=== PATIENT | female | born 1990 | race Caucasian/White ===

== ENCOUNTER 2021-03-09 10:28 | Inpatient (IN) | payer MEDICAID, SELFPAY ==
[2021-03-09 11:05] VITALS: BP 117/81; PULSE 70; RESP 20; TEMP 36.7; O2SAT 100; BMI 30.9
--- NOTE | 2021-03-09 11:05 | XRR_ITS ---
PROCEDURE INFORMATION: Exam: XR Chest Exam date and time: 03/09/2021 11:05 AM Age: 31 years old Clinical indication: Angina pectoris and other: Lrq pain; Prior surgery; Surgery type: Hysto, hernia, , abd reconstruction; Additional info: Chest pain TECHNIQUE: Imaging protocol: XR of the chest. Views: 2 views. COMPARISON: No relevant prior studies available. FINDINGS: Lungs: Unremarkable. No consolidation. Pleural spaces: Unremarkable. No pleural effusion. No pneumothorax. Heart/Mediastinum: Unremarkable. No cardiomegaly. Bones/joints: Unremarkable. XR/XR chest 2V* [id number] IMPRESSION: No acute findings. Radiation Dose CTDIVOL = (mGy): DLP = (mGy-cm)
--- NOTE | 2021-03-09 11:06 | ECG_ITS ---
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
[2021-03-09 13:07] VITALS: BP 123/82; PULSE 88; RESP 18; O2SAT 100
[2021-03-09 13:51] LABS: Add Urine Microscopic? NO; Charge for UA Resulting for Rev
[2021-03-09 13:56] LABS: Urine Color Dark Yellow (Yellow)
[2021-03-09 13:57] LABS: Bilirubin Urine 1+ (Negative); Blood Urine Neg (Negative); Glucose Urine UA Norm (Normal); Ketones Urine Negative (Negative); Leukocyte Esterase Urine Negative (Negative); Nitrate Urine Negative (Negative); Protein Urine Neg (Negative); Urine Appearance Clear (CLEAR); Urobilinogen Urine 1 mg/dL (Negative); pH Urine 5 (5-7)
--- NOTE | 2021-03-09 15:11 | W.ED.ABDPA2 ---
HPI - Abdominal Pain General: Chief Complaint: Abdominal Pain Stated Complaint: RUQ PAIN,MIGRAINE,PULSE ^125,R SIDE CP/NECK PAIN Time Seen by Provider: 03/09/21 15:11 History of Present Illness: HPI narrative: 31-year-old female comes in multiple complaints. She reported having some tachycardia and lightheadedness and dizziness yesterday that is pretty much resolved she does have some right upper quadrant pain but this evidently has been going on for years is little bit worse just recently. Does radiate up into her shoulder at times into her neck. Multiple previous evaluations for gallbladder disease all of which have been negative including a HIDA scan. This was done at an outside facility she recently moved to this area. She has no known history of diabetes no history of coronary artery disease. She did have a little bit of nausea and diarrhea last night. She is also reporting significant fluctuations in weight over the last year with a large weight last year when she moved here and now more recent weight loss. MD elicited complaint: abdominal pain Onset (ago): hour(s) Location: None Severity: moderate Quality: cramping Radiation: none Migration to: no migration Exacerbating factors: nothing Relieving factors: nothing Associated Symptoms: Denies anorexia, belching, bloating, change in bowel habits, change in stool character, chills, coffee ground emesis, constipation, GI cramping, diarrhea, dyspepsia, dysuria, excessive flatus, fever(s), heartburn, hematochezia, hematuria, hematemesis, fecal incontinence, loose stools, melena, nausea, poor appetite, syncope and vomiting Related Data: Date of Last Menstrual Period: 05/22/13 Review of Systems Const: Denies: fever(s) or chills ENMT: Denies: throat pain, ear or mastoid pain, nasal discharge or nasal congestion Card: Denies: syncope Resp: Denies: dyspnea, productive cough or non-productive cough GI: Denies: nausea, vomiting, hematemesis, coffee ground emesis, heartburn, diarrhea, constipation, bloating, GI cramping, belching, excessive flatus, fecal incontinence, change in bowel habits, change in stool character, hematochezia or melena : Denies: dysuria or hematuria Skin/Breast: Denies: rash or pruritus PFSH ED PFSH: Medical History Endometriosis Migraine Nephrolithiasis Von Willebrands disease Surgical History H/O bilateral oophorectomy For endometriosis H/O: hysterectomy 2013, for endometriosis Female Reproductive History: Date of last menstrual period: 05/22/13 Physical Exam Const: COMMON NORMALS: average body habitus, patient oriented x3 and alert GENERAL APPEARANCE: cooperative, comfortable, well kempt and well developed NUTRITIONAL APPEARANCE: obese ORIENTATION/CONSCIOUSNESS: Yes awake, Yes oriented to person and Yes oriented to place HENMT: COMMON NORMALS: normocephalic, atraumatic and EAC's normal HEAD & SCALP: normocephalic and atraumatic EXTERNAL AUDITORY CANAL: EAC's normal Neck/C-Spine: COMMON NORMALS: full ROM, no lymphadenopathy, supple, no meningeal signs and Thyroid normal THYROID: Thyroid normal and asymmetrical Resp: COMMON NORMALS: normal respiratory effort, No retractions, No use of accessory muscles and clear to auscultation bilaterally AUSCULTATION: clear to auscultation bilaterally Cardio: COMMON NORMALS: regular rate and regular rhythm RATE: regular rate RHYTHM: regular rhythm HEART SOUNDS: no murmurs GI: COMMON NORMALS: Normal to inspection, nondistended, normoactive bowel sounds present, Soft to palpation and No hepatosplenomegaly present PALPATION: Yes Soft to palpation and Yes No hepatosplenomegaly present : COMMON NORMALS: Yes no CVA tenderness BLADDER/KIDNEY EXAM: Yes no CVA tenderness Back/Pelvis: COMMON NORMALS: no CVA tenderness LUMBAR SPINE/LOWER BACK: Yes normal to inspection Extremity: COMMON NORMALS: no clubbing, cyanosis or edema, no calf tenderness and no pedal edema Neuro: COMMON NORMALS: patient oriented x3 SENSORIUM/ORIENTATION: Yes alert, Yes oriented to person and Yes oriented to place MENINGEAL SIGNS: Yes no meningeal signs Psych: APPEARANCE: Yes well kempt Skin: COMMON NORMALS: no rashes or lesions noted and turgor normal GENERAL SKIN EXAM: no rashes or lesions noted and turgor normal Course Vital Signs: Vital signs: Vital Signs Temperature 97.7 F 03/10/21 14:10 Pulse Rate 68 03/10/21 14:20 Respiratory Rate 16 03/10/21 14:20 Blood Pressure 100/62 03/10/21 14:20 Pulse Oximetry 100 03/10/21 14:20 MDM - Abdominal Pain MDM Narrative: Medical decision making narrative: See report states possible early appendicitis. No back to reexamine the patient she does have a little bit more right lower quadrant pain that she did not report initially initially was all right upper quadrant pain. Discussed Dr. Treadwell, pt will be put on observation and monitor her he will see her. We will also consult the hospitalist due to her report of a mild von Willebrand's disease. Lab Data: Labs: Lab Results 03/09/21 03/09/21 03/09/21 13:47 13:47 15:38 WBC 4.2 10^3/uL 10^3/ uL (4.0-10.0) RBC 4.69 10^6/uL 10^6 /uL (4.1-5.3) Hgb 13.2 g/dL g/dL (11.5-15.3) Hct 39.8 % % (37.0-47.0) MCV 84.9 fl fl (81-99) MCH 28.1 pg pg (28.0-34.0) MCHC 33.2 g/dL g/dL (30.0-36.0) RDW 13.5 % % (12.1-15.1) Plt Count 231 10^3/cmm 10^3 /cmm (130-400) MPV 9.1 fL fL (7.4-10.4) Neut % (Auto) 59.0 % % Lymph % (Auto) 30.0 % % [place] % (Auto) 7.9 % % Eos % (Auto) 2.1 % % Baso % (Auto) 0.5 % % Neut # (Auto) 2.48 10^3/uL 10^3 /uL (1.8-7.7) Lymph # (Auto) 1.3 10^3/uL 10^3/ uL (0.8-4.8) [place] # (Auto) 0.3 10^3/uL 10^3/ uL (0.2-0.9) Eos # (Auto) 0.1 10^3/uL 10^3/ uL (0.0-0.8) Baso # (Auto) 0.0 10^3/uL 10^3/ uL (0.0-0.1) Nucleated RBC % (a uto) 0 % % Nucleated RBCs # 0.0 /100WBC /100W BC PT INR APTT Sodium Potassium Chloride Carbon Dioxide Anion Gap BUN Creatinine GFR Calculation Glucose Calculated Osmolal ity Calcium Total Bilirubin AST ALT Alkaline Phosphata se Troponin T Gen 5 n g/L Total Protein Albumin Globulin Lipase Urine Color Dark yellow (Yellow) Urine Appearance Clear (CLEAR) Urine pH 5 (5-7) Ur Specific Gravit y 1.020 (1.005-1.030) Urine Protein Neg (Negative) Urine Glucose (UA) Norm (Normal) Urine Ketones Negative (Negative) Urine Blood Neg (Negative) Urine Nitrate Negative (Negative) Urine Bilirubin 1+ H (Negative) Urine Urobilinogen 1 mg/dL H mg/dL (Negative) Ur Leukocyte Lila ase Negative (Negative) Urine HCG, Qual Negative (Negative) 03/09/21 03/09/21 03/09/21 15:38 15:38 15:38 WBC RBC Hgb Hct MCV MCH MCHC RDW Plt Count MPV Neut % (Auto) Lymph % (Auto) [place] % (Auto) Eos % (Auto) Baso % (Auto) Neut # (Auto) Lymph # (Auto) [place] # (Auto) Eos # (Auto) Baso # (Auto) Nucleated RBC % (a uto) Nucleated RBCs # PT 14.00 SECONDS SEC ONDS (12.1-14.9) INR 1.05 (0.8-1.2) APTT 38.6 SECONDS H SE CONDS (23.9-36.7) Sodium 139 mmol/L mmol/L (136-145) Potassium 3.6 mmol/L mmol/L (3.5-5.1) Chloride 101 mmol/L mmol/L (98-107) Carbon Dioxide 27 mmol/L mmol/L (22-29) Anion Gap 14.6 (5-19) BUN 6 mg/dL mg/dL (6-20) Creatinine 0.6 mg/dL mg/dL (0.5-0.9) GFR Calculation 116.6 mL/min mL/m in (90-130) Glucose 82 mg/dL mg/dL (65-115) Calculated Osmolal ity 285 mOsm/kg mOsm/ kg (285-295) Calcium 9.5 mg/dL mg/dL (8.5-10.5) Total Bilirubin 1.0 mg/dL mg/dL (0.15-1.2) AST 15 U/L U/L (0-32) ALT 10 U/L U/L (0-33) Alkaline Phosphata se 99 IU/L IU/L (35-105) Troponin T Gen 5 n g/L 6 ng/L ng/L (0-10) Total Protein 7.5 g/dL g/dL (6.6-8.7) Albumin 4.3 g/dL g/dL (3.5-5.2) Globulin 3.2 g/dL g/dL (1.3-4.6) Lipase 19 U/L U/L (13-60) Urine Color Urine Appearance Urine pH Ur Specific Gravit y Urine Protein Urine Glucose (UA) Urine Ketones Urine Blood Urine Nitrate Urine Bilirubin Urine Urobilinogen Ur Leukocyte Lila ase Urine HCG, Qual Discharge Plan Discharge Patient Disposition: Admitted As Inpatient Admit Provider: Lew Treadwell Clinical Impression: Acute appendicitis, Von Willebrands disease Condition: Stable Coding 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
[2021-03-09 15:59] LABS: Basophils % 0.5 %; Eosinophils # 0.1 10^3/uL (0.0-0.8); Eosinophils % 2.1 %; Hematocrit 39.8 % (37.0-47.0); Hemoglobin 13.2 g/dL (11.5-15.3); Lymphocytes # 1.3 10^3/uL (0.8-4.8); Mean Corpuscular HGB Conc 33.2 g/dL (30.0-36.0); Mean Corpuscular Hemoglobin 28.1 pg (28.0-34.0); Mean Corpuscular Volume 84.9 fl (81-99); Mean Platelet Volume 9.1 fL (7.4-10.4); Monocytes # 0.3 10^3/uL (0.2-0.9); Monocytes % 7.9 %; Neutrophils # 2.48 10^3/uL (1.8-7.7); Nucleated Red Blood Cells % 0 %; Platelet Count 231 10^3/cmm (130-400); Red Blood Count 4.69 10^6/uL (4.1-5.3); Red Cell Distribution Width 13.5 % (12.1-15.1); White Blood Count 4.2 10^3/uL (4.0-10.0)
--- NOTE | 2021-03-09 16:06 | CTR_ITS ---
PROCEDURE INFORMATION: Exam: CT Abdomen And Pelvis With Contrast Exam date and time: 03/09/2021 4:06 PM Age: 31 years old Clinical indication: Abdominal pain; Localized; Right; Prior surgery; Surgery type: Hyst, hernia, abd wall recon, breast reduction, csection; Patient HX: RT side pain radiating to back x 2 months. Nausea/diarrhea; Additional info: Abd pain TECHNIQUE: Imaging protocol: Computed tomography of the abdomen and pelvis with contrast. Radiation optimization: All CT scans at this facility use at least one of these dose optimization techniques: automated exposure control; mA and/or kV adjustment per patient size (includes targeted exams where dose is matched to clinical indication); or iterative reconstruction. Contrast material: OMNI 300; Contrast volume: 95 ml; Contrast route: INTRAVENOUS (IV); COMPARISON: CR XR chest 2V* [id number] 03/09/2021 11:21 AM RADIATION DOSE METRICS: Total DLP (mGy-cm): 1449.67 FINDINGS: Liver: Normal. No mass. Gallbladder and bile ducts: Normal. No calcified stones. No ductal dilation. Pancreas: Normal. No ductal dilation. Spleen: Normal. No splenomegaly. Adrenal glands: Normal. No mass. Kidneys and ureters: A tiny renal stone is present in the right kidney. The kidneys appear normal. No ureteral stone or hydronephrosis. Stomach and bowel: Unremarkable. No obstruction. No mucosal thickening. Appendix: The appendix is mildly enlarged measuring up to 10 mm in diameter. Intraperitoneal space: Unremarkable. No free air. No significant fluid collection. Vasculature: Unremarkable. No abdominal aortic aneurysm. Lymph nodes: Unremarkable. No enlarged lymph nodes. Urinary bladder: Mild urinary bladder wall thickening is appreciated. Reproductive: The uterus is absent. Bones/joints: Unremarkable. No acute fracture. Soft tissues: Unremarkable. CT/CT abdomen pelvis w con* [id number] IMPRESSION: 1. Possible early acute appendicitis, correlate clinically. 2. Mild cystitis, correlate with urinalysis. 3. Nonobstructing right kidney renal stone. Radiation Dose CTDIVOL = (mGy): DLP = 1449.67 (mGy-cm)
[2021-03-09 16:24] LABS: Alanine Aminotransferase 10 U/L (0-33); Albumin Level 4.3 g/dL (3.5-5.2); Alkaline Phosphatase 99 IU/L (35-105); Anion Gap 14.6 (5-19); Aspartate Amino Transferase 15 U/L (0-32); Blood Urea Nitrogen 6 mg/dL (6-20); Calcium 9.5 mg/dL (8.5-10.5); Carbon Dioxide 27 mmol/L (22-29); Chloride 101 mmol/L (98-107); Globulin 3.2 g/dL (1.3-4.6); Glomerular Filtration Rate 116.6 mL/min (90-130); Glucose 82 mg/dL (65-115); Lipase 19 U/L (13-60); Osmolality Calculated 285 mOsm/kg (285-295); Potassium 3.6 mmol/L (3.5-5.1); Sodium 139 mmol/L (136-145); Total Protein 7.5 g/dL (6.6-8.7)
[2021-03-09 16:25] LABS: Troponin T (5th) Once 6 ng/L (0-10)
[2021-03-09] MEDS: iohexol 300 mg/mL 100 mL Btl IV (16:27)
[2021-03-09] MEDS: sodium chloride 0.9% 1,000 ML 999 ML IV (17:38)
[2021-03-09] MEDS: ondansetron 2 mg/ML SDV 2 mL 4 MG IVP ×2 (17:38→21:33)
[2021-03-09] MEDS: metroNIDAZOLE IV 500 MG/100 ML PREMIX 100 MG IV (18:07)
[2021-03-09 18:10] LABS: INR 1.05 (0.8-1.2)
[2021-03-09 18:11] LABS: Partial Thromboplastin Time 38.6 SECONDS (23.9-36.7)
--- NOTE | 2021-03-09 19:17 | PM.CONSULT ---
Providers/Reason For Consult Consulting Physician/Specialty*: MD Ryan/Internal Medicine Reason for Consult*: Medical co-morbidities Attending Physician: Lew Treadwell MD History of Present Illness History of Present Illness Sloane Meyers is a 31 year old female, recently moved to [place] about 2 months ago, with a past medical history of von Willebrand disease, migraine, endometriosis with excessive menstrual bleeding, status post hysterectomy and bilateral oophorectomy for the same. She reports that over the past 1 month she has been having right-sided abdominal pain, initially concentrated around her right upper quadrant and back, however over the past 24 to 48 hours this pain appears to have moved lower down, now closer to the mid flank to right lower quadrant area. She does have a history of kidney stones and initially attributed the pain to stones. She has not passed any stones in urine. Denies any hematuria. Denies any current increased frequency burning micturition etc. States that she has also been experiencing chills and subjective fever last night along with loss of appetite. She had one episode of diarrhea yesterday. Yesterday apart from the abdominal pain she also experienced her typical migraine headache with tunnel vision, nausea and palpitations with heart rate up to 120 bpm. This prompted her visit to the emergency room. CT of the abdomen today is concerning for mild acute appendicitis, nephrolithiasis without obstruction. She is currently admitted under general surgery, medicine service consulted for medical comorbidity management. Her significant past medical history includes that for von Willebrand disease, states that she has not had any significant bleeding complications with her prior abdominal surgeries, however did receive DDAVP 30 minutes prior to each surgery previously. She has not needed any blood transfusion except for the time she delivered her twin children 9 years ago. No current h/o easy bruising or bleeding at any site. Recently moved to the [place] area, prior medical care has been in [place] and [place], not established with hematology here yet. Review of Systems General: Reports: 10 or more systems reviewed and unremarkable except in HPI and below Const: Reports: fever(s), chills, change in appetite and change in weight; Denies: body aches, malaise, night sweats, diaphoresis, change in sleep pattern, daytime sleepiness or snoring Eyes: Denies: change in vision, blurry vision, photophobia, eye discomfort or eye discharge ENMT: Denies: throat pain, enlarged tonsils, hoarseness, mouth pain, oral sores, dry mouth, tinnitus, nasal congestion or post nasal drip Card: Denies: chest pain, palpitations, irregular heart rhythm, edema, swelling of feet/ankles, lightheadedness, syncope, pre-syncope, dyspnea on exertion, orthopnea, leg pain with exertion or acrocyanosis Resp: Denies: dyspnea, productive cough, non-productive cough, wheezing, stridor, pain on inspiration, change in phlegm color, hemoptysis or chest congestion GI: Reports: abdominal pain and nausea; Denies: vomiting, hematemesis, coffee ground emesis, dysphagia, heartburn, diarrhea, constipation, bloating, GI cramping, change in bowel habits, pain on defecation, hematochezia or melena : Denies: flank pain, dysuria, urinary frequency, urinary urgency, urinary hesitancy, nocturia or hematuria Musc: Denies: neck pain, back pain, extremity pain, joint pain, joint swelling, joint redness, joint stiffness or limited range of motion Neuro: Denies: headache(s), numbness in extremities, weakness in extremities, sensory changes, lack of coordination, difficulty walking, frequent falls, dizziness, vertigo, confusion, Slurred speech present, difficulty communicating thoughts or seizure-like activity Psych: Denies: anxiety, depression, mood swings, panic attacks, hopelessness or irritability Endo: Denies: polyuria, polydipsia, tired all the time, cold intolerance, excessive sweating, flushing or heat intolerance [place]/Lymph: Denies: easy bruising or easy bleeding All/Imm: Denies: tongue swelling, facial swelling or acute wheezing Meds/Allergies Home Medications and Allergies Home Medications Medication Instructions Recorded Confirmed Last Taken Type estradiol acetate [Femring] 1 vag ring VAGINAL .EVERY 90 DAYS 03/09/21 03/09/21 Unknown History Allergies Allergy/AdvReac Type Severity Reaction Status Date / Time Penicillins Allergy Unknown Verified 03/09/21 16:17 PFSH Acute PFSH: Medical History (Updated 03/10/21 @ 00:46 by Han Davis MD) Endometriosis Migraine Nephrolithiasis Von Willebrands disease Surgical History (Updated 03/10/21 @ 00:46 by Han Davis MD) H/O bilateral oophorectomy For endometriosis H/O: hysterectomy 2013, for endometriosis Female Reproductive History: Date of last menstrual period: 05/22/13 Vitals/I&O/Wt Last Vital Signs Temp 98.1 F 03/09/21 11:05 Pulse 88 03/09/21 13:07 Resp 18 03/09/21 13:07 BP 123/82 03/09/21 13:07 Pulse Ox 100 03/09/21 13:07 Weight last 48 hrs Weight 79.379 kg Physical Exam Narrative: EXAM NARRATIVE: EXAM NARRATIVE: General: No acute distress, AO x3, HEENT: PERRLA, pupils bilaterally equal and reactive Chest: clear to auscultation B/L CVS: S1-S2 regular, no murmurs, no tachycardia, no gallops, no rubs Abdomen: Soft, tender to palpation right mid abdomen, no organomegaly, bowel sounds present,no rebound tenderness or guarding Neuro: No focal deficits, no facial deformity, AO x3, power 5/5 in all limbs Data Other Data: Attestation for Other Data: I personally reviewed and interpreted the following: Other data: Laboratory Results WBC 4.2 10^3/uL (4.0- 10.0) 03/09/21 15:38 RBC 4.69 10^6/uL (4.1 -5.3) 03/09/21 15:38 Hgb 13.2 g/dL (11.5-1 5.3) 03/09/21 15:38 Hct 39.8 % (37.0-47.0 ) 03/09/21 15:38 MCV 84.9 fl (81-99) 03/09/21 15:38 MCH 28.1 pg (28.0-34. 0) 03/09/21 15:38 MCHC 33.2 g/dL (30.0-3 6.0) 03/09/21 15:38 RDW 13.5 % (12.1-15.1 ) 03/09/21 15:38 Plt Count 231 10^3/cmm (130 -400) 03/09/21 15:38 MPV 9.1 fL (7.4-10.4) 03/09/21 15:38 Neut % (Auto) 59.0 % 03/09/21 15:38 Lymph % (Auto) 30.0 % 03/09/21 15:38 [place] % (Auto) 7.9 % 03/09/21 15:38 Eos % (Auto) 2.1 % 03/09/21 15:38 Baso % (Auto) 0.5 % 03/09/21 15:38 Neut # (Auto) 2.48 10^3/uL (1.8 -7.7) 03/09/21 15:38 Lymph # (Auto) 1.3 10^3/uL (0.8- 4.8) 03/09/21 15:38 [place] # (Auto) 0.3 10^3/uL (0.2- 0.9) 03/09/21 15:38 Eos # (Auto) 0.1 10^3/uL (0.0- 0.8) 03/09/21 15:38 Baso # (Auto) 0.0 10^3/uL (0.0- 0.1) 03/09/21 15:38 Nucleated RBC % (a uto) 0 % 03/09/21 15:38 Nucleated RBCs # 0.0 /100WBC 03/09/21 15:38 PT 14.00 SECONDS (12 .1-14.9) 03/09/21 15:38 INR 1.05 (0.8-1.2) 03/09/21 15:38 APTT 38.6 SECONDS (23. 9-36.7) H 03/09/21 15:38 Sodium 139 mmol/L (136-1 45) 03/09/21 15:38 Potassium 3.6 mmol/L (3.5-5 .1) 03/09/21 15:38 Chloride 101 mmol/L (98-10 7) 03/09/21 15:38 Carbon Dioxide 27 mmol/L (22-29) 03/09/21 15:38 Anion Gap 14.6 (5-19) 03/09/21 15:38 BUN 6 mg/dL (6-20) 03/09/21 15:38 Creatinine 0.6 mg/dL (0.5-0. 9) 03/09/21 15:38 GFR Calculation 116.6 mL/min (90- 130) 03/09/21 15:38 Glucose 82 mg/dL (65-115) 03/09/21 15:38 Calculated Osmolal ity 285 mOsm/kg (285- 295) 03/09/21 15:38 Calcium 9.5 mg/dL (8.5-10 .5) 03/09/21 15:38 Total Bilirubin 1.0 mg/dL (0.15-1 .2) 03/09/21 15:38 AST 15 U/L (0-32) 03/09/21 15:38 ALT 10 U/L (0-33) 03/09/21 15:38 Alkaline Phosphata se 99 IU/L (35-105) 03/09/21 15:38 Troponin T Gen 5 n g/L 6 ng/L (0-10) 03/09/21 15:38 Total Protein 7.5 g/dL (6.6-8.7 ) 03/09/21 15:38 Albumin 4.3 g/dL (3.5-5.2 ) 03/09/21 15:38 Globulin 3.2 g/dL (1.3-4.6 ) 03/09/21 15:38 Lipase 19 U/L (13-60) 03/09/21 15:38 Urine Color Dark yellow (Yel low) 03/09/21 13:47 Urine Appearance Clear (CLEAR) 03/09/21 13:47 Urine pH 5 (5-7) 03/09/21 13:47 Ur Specific Gravit y 1.020 (1.005-1.0 30) 03/09/21 13:47 Urine Protein Neg (Negative) 03/09/21 13:47 Urine Glucose (UA) Norm (Normal) 03/09/21 13:47 Urine Ketones Negative (Negati ve) 03/09/21 13:47 Urine Blood Neg (Negative) 03/09/21 13:47 Urine Nitrate Negative (Negati ve) 03/09/21 13:47 Urine Bilirubin 1+ (Negative) H 03/09/21 13:47 Urine Urobilinogen 1 mg/dL (Negative ) H 03/09/21 13:47 Ur Leukocyte Lila ase Negative (Negati ve) 03/09/21 13:47 Urine HCG, Qual Negative (Negati ve) 03/09/21 13:47 Impressions Chest X-Ray 03/09/21 11:05 IMPRESSION: No acute findings. Radiation Dose CTDIVOL = (mGy): DLP = (mGy-cm) Abdomen/Pelvis CT 03/09/21 16:06 IMPRESSION: 1. Possible early acute appendicitis, correlate clinically. 2. Mild cystitis, correlate with urinalysis. 3. Nonobstructing right kidney renal stone. Radiation Dose CTDIVOL = (mGy): DLP = 1449.67 (mGy-cm) A&P Assessment and plan (1) Acute appendicitis: Patient currently admitted to general surgery service for acute appendicitis as noted on CT. Concerning symptoms include right-sided abdominal pain, subjective fever chills, loss of appetite. Subacute abdominal pain symptoms dating back to 1 month may be related to kidney stones, nonobstructive currently, no acute intervention indicated at this time. Currently on medical management with ciprofloxacin and Flagyl for the same Management per surgery Status: Acute (2) Von Willebrands disease: no current bleeding Has undergone prior hysterectomy, oophorectomy without any bleeding complications. She did receive DDAVP 30 minutes prior to her prior surgeries. She required transfusion once during the delivery of her twin children 9 years ago. Patient plan for surgical intervention for her acute appendicitis, recommend DDAVP 30 minutes prior to procedure. VWF concentrate vs cryoprecipitate on standby for OR in case of major bleeding events. Status: Acute Additional A&P Information H/o migraine: no current headache H/o Kidney stones: non obstructive currently Cystitis noted on CT abdomen: no clinical correlate currently, denies dysuria. 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
[2021-03-09] MEDS: ciprofloxacin 400 MG/200 ML PREMIX 200 MG IV (19:24)
[2021-03-09] MEDS: HYDROmorphone 1 mg/mL INJ 1 mL IVP (19:29)
[2021-03-09] MEDS: D5-NS 0.45% + KCL 20 mEq 20 MEQ/1,000 ML BAG 150 MEQ IV (21:35)
[2021-03-09 21:38] VITALS: BMI 32.2
[2021-03-09 21:42] VITALS: BP 112/75; PULSE 63; RESP 18; TEMP 36.6; O2SAT 99
[2021-03-10] VITALS (29 sets, daily range): BP systolic 85–133; BP diastolic 46–82; PULSE 48–105; RESP 8–30; TEMP 35.7–36.7; O2SAT 96–100
[2021-03-10] MEDS: metroNIDAZOLE IV 500 MG/100 ML PREMIX 100 MG IV ×2 (01:18→10:13)
[2021-03-10] MEDS: ketorolac 30 mg/mL INJ 15 MG IVP (02:45)
[2021-03-10] MEDS: ondansetron 2 mg/ML SDV 2 mL 4 MG IVP ×2 (02:45→18:16)
[2021-03-10 03:01] LABS: Basophils % 0.4 %; Eosinophils # 0.1 10^3/uL (0.0-0.8); Eosinophils % 2.5 %; Hematocrit 38.1 % (37.0-47.0); Lymphocytes # 1.2 10^3/uL (0.8-4.8); Lymphocytes % 24.2 %; Mean Corpuscular HGB Conc 31.5 g/dL (30.0-36.0); Mean Corpuscular Hemoglobin 27.6 pg (28.0-34.0); Mean Corpuscular Volume 87.6 fl (81-99); Mean Platelet Volume 9.2 fL (7.4-10.4); Monocytes # 0.4 10^3/uL (0.2-0.9); Monocytes % 8.6 %; Neutrophils # 3.13 10^3/uL (1.8-7.7); Neutrophils % 64.1 %; Nucleated Red Blood Cells % 0 %; Platelet Count 203 10^3/cmm (130-400); Red Blood Count 4.35 10^6/uL (4.1-5.3); Red Cell Distribution Width 13.5 % (12.1-15.1); White Blood Count 4.9 10^3/uL (4.0-10.0)
[2021-03-10 03:14] LABS: Alanine Aminotransferase 9 U/L (0-33); Albumin Level 3.9 g/dL (3.5-5.2); Alkaline Phosphatase 90 IU/L (35-105); Anion Gap 12.2 (5-19); Aspartate Amino Transferase 14 U/L (0-32); Blood Urea Nitrogen 5 mg/dL (6-20); Calcium 8.9 mg/dL (8.5-10.5); Carbon Dioxide 24 mmol/L (22-29); Chloride 106 mmol/L (98-107); Globulin 2.9 g/dL (1.3-4.6); Glomerular Filtration Rate 143.9 mL/min (90-130); Glucose 107 mg/dL (65-115); Osmolality Calculated 284 mOsm/kg (285-295); Potassium 4.2 mmol/L (3.5-5.1); Sodium 138 mmol/L (136-145); Total Bilirubin 0.9 mg/dL (0.15-1.2); Total Protein 6.8 g/dL (6.6-8.7)
[2021-03-10] MEDS: D5-NS 0.45% + KCL 20 mEq 20 MEQ/1,000 ML BAG 150 MEQ IV ×2 (04:37→08:49)
--- NOTE | 2021-03-10 04:51 | PC.NURSE ---
Patient arrived to floor via WC, minimal c/o pain and nausea relieved by medication per JUL. VSS, no needs at this time. Room clutter free and call light in reach.
--- NOTE | 2021-03-10 05:39 | PM.HP ---
Providers/Chief Complaint Admitting Physician: Lew Treadwell MD Chief Complaint: RUQ PAIN,MIGRAINE,PULSE ^125,R SIDE CP/NECK PAIN History of Present Illness Chief Complaint: My tummy hurtS History of present illness: Ms. Sloane Meyers is a pleasant 31 year old female presents with history of abdominal pain for the past couple of days that got worse. Mostly dull in nature and has had a periumbilical component it was shifted towards the right lower side. No other associated symptoms and the patient reports that she has been having some increase in her heart rate when the pain started before that she had right upper quadrant abdominal pain was referred to the right shoulder and she was told before that her gallbladder was normal. Patient denies any nausea or vomiting fevers or chills. Recently moved from [place] to [place]. Patient also gives history of mild form of von Willebrand's disease that requires DDAVP 30 minutes prior to procedure. Patient states that she has not had any significant bleeding complications with her prior abdominal surgeries, however did receive DDAVP 30 minutes prior to each surgery previously. She has not needed any blood transfusion except for the time she delivered her twin children 9 years ago. No current h/o easy bruising or bleeding at any site. Patient also reports history of endometriosis and fatty liver. CT scan of the abdomen pelvis was done that showed 1. Possible early acute appendicitis, correlate clinically. 2. Mild cystitis, correlate with urinalysis. 3. Nonobstructing right kidney renal stone. Also reports history of kidney stones. General surgery was consulted for further care Review of Systems General: Reports: 10 or more systems reviewed and unremarkable except in HPI and below Medications/Allergies Home Medications Medication Instructions Recorded Confirmed Last Taken Type estradiol acetate [Femring] 1 vag ring VAGINAL .EVERY 90 DAYS 03/09/21 03/09/21 Unknown History Allergies Allergy/AdvReac Type Severity Reaction Status Date / Time latex Allergy Unknown Verified 03/10/21 10:48 Penicillins Allergy Unknown Verified 03/09/21 16:17 PFSH Acute PFSH: Medical History Endometriosis Migraine Nephrolithiasis Von Willebrands disease Surgical History H/O bilateral oophorectomy For endometriosis H/O: hysterectomy 2014, for endometriosis Female Reproductive History: Date of last menstrual period: 05/22/13 Vitals/I&O/Wt Last Vital Signs Temp 98 F 03/10/21 00:00 Pulse 62 03/10/21 00:00 Resp 18 03/10/21 00:00 BP 115/68 03/10/21 00:00 Pulse Ox 98 03/10/21 00:00 03/09/21 03/09/21 03/10/21 14:59 22:59 06:59 Intake Total 1300 / 1300 1400 / 2700 Balance 1300 / 1300 1400 / 2700 Weight last 48 hrs Weight 182 lb Weight 175 lb Physical Exam Const: COMMON NORMALS: no acute distress and patient oriented x3 GENERAL APPEARANCE: cooperative ORIENTATION/CONSCIOUSNESS: Yes awake, Yes oriented to person, Yes oriented to place and Yes oriented to time HENMT: COMMON NORMALS: normocephalic HEAD & SCALP: normocephalic Eye: COMMON NORMALS: Equal, round and reactive pupils present and no scleral icterus PUPIL: Yes Equal, round and reactive pupils present Lymph: LYMPHATIC: no lymphadenopathy noted Chest: COMMONS NORMALS: normal inspection of the chest Resp: COMMON NORMALS: normal respiratory effort and clear to auscultation bilaterally AUSCULTATION: clear to auscultation bilaterally Cardio: COMMON NORMALS: S1 normal heart sound present and S2 normal heart sound present; negative for No murmurs present (Cardio) HEART SOUNDS: S1 normal heart sound present and S2 normal heart sound present GI: COMMON NORMALS: Soft to palpation; negative for No hepatosplenomegaly present INSPECTION: Yes normal to inspection and Yes scar (Lower transverse abdominal wall scar status post abdominoplasty) PALPATION: Yes Soft to palpation, No Firmness to palpation present (GI), Yes Tenderness to palpation present (GI) Details: RLQ (Mild localized rigidity and tenderness associated with guarding), No Guarding due to palpation present (GI), No Rigid due to palpation and No No hepatosplenomegaly present Neuro: COMMON NORMALS: patient oriented x3 SENSORIUM/ORIENTATION: Yes oriented to person, Yes oriented to place and Yes oriented to time Psych: COMMON NORMALS: mental status grossly normal Skin: COMMON NORMALS: no rashes or lesions noted GENERAL SKIN EXAM: no rashes or lesions noted Data : 03/10/21 02:34 03/10/21 02:34 A&P Assessment and plan (1) Acute appendicitis: After thorough history physical examination and reviewing the chart and images with my personal interpretion, I do agree on mild changes at the appendix likely an early acute appendicitis, I counseled the patient for laparoscopic appendectomy possible open. Indications, risks, benefits and alternatives were all discussed with the patient and did agree to proceed. Rationale was carefully and clearly discussed with the patient.Appropriate informed consent have been reviewed and signed. Patient also understands that she is at high risk of bleeding given the fact that she has von Willebrand's disease. I appreciate the hospitalist recommendation, and will plan to give DDAVP 30 minutes prior to surgery. Status: Acute Attestations Medical Necessity Statement*: Observation for perioperative care Time Spent in Patient Care: (>than 50% of time spent in counselling and/or direct pt care on unit). Coding Level of Care Code Acute Utilization Coordinator for [facility] Fwd Exam Comprehensive Diagnoses Acute appendicitis K35.80
[2021-03-10] MEDS: ciprofloxacin 400 MG/200 ML PREMIX 200 MG IV ×2 (08:45→20:45)
--- NOTE | 2021-03-10 09:40 | PC.NURSE ---
During rounding, patient was concerned about her surgery being at 1300, stating that her and her just moved to the area and have nobody to watch their kids while her is her support person immediately following surgery. She states that she has a history of PTSD after having a poor experience after the of her twins. She states that when she becomes aware after surgery, she is often violent and scared. I called and spoke with Dr. Treadwell and informed him of this. He verbalizes understanding and states he will let OR staff and Anesthesiology aware of the situation and he also gave permission for her children to be here with her during the short time after surgery if needed. He also states that if patient needs a PRN anxiety medication after surgery, to please f/u with hospitalist. I went back in and spoke with the patient and informed her of this and gave her permission to have her children present immediately after surgery and they could come back to the room with her. As long as she is stable and having no issues, her children may stay for 30 minutes after surgery on Med/Surg. She verbalizes appreciation of this and verbalizes understanding of the limited visitation.
--- NOTE | 2021-03-10 09:49 | PC.NURSE ---
I spoke with Dr. Davis and informed him of patient's history of PTSD following procedures and requested a PRN order for anti anxiety medication if needed. He put in an order for Xanax as needed post-op. He also states patient will need to have 2 units of PRBCs ready for post-op if needed. I placed order for type and screen and for packed cell transfusion quantity 2. I called and spoke with Drake Treviño in Lab and verified correct order was placed and that units would be ready if needed post-op at 1300. I spoke with patient and informed her of the above information. She verbalizes understanding.
--- NOTE | 2021-03-10 10:18 | PC.CHAP ---
Pastoral Care Encounter/Spiritual Assessment Type of Contact [] Declined outsole leveler visit [] Patient/Family/Request visit [] Outpatient visit [] Follow-up visit [] Physician referral [] Code/Alert [x] Routine visit [] Staff referral [] Actively dying [] Patient sleeping [] Family support [] [] Out of room [] Palliative care [] [] Receiving care in room [] Pre-surgical visit [] Trauma [] Long length of stay [] ICU visit [] Other: Relational/Emotional Strength [x] Patient feels connected with others/family/visitors/staff [] Distress [] Loneliness/isolation [] Abandonment Spirituality of Patient [x] Person of Karena [x] Attends Hindu of their Karena [x] Believes in Prayer [] Reads Bible or Scientologist materials [] There are Spiritual issues to be addressed Electroneurodiagnostic Technologist Interventions [x] Prayer [x] Active listening [x] Non-anxious presence [] Spiritual/emotional support [] Crisis/trauma care [] Spiritual counseling [] Bereavement support [] Provided bereavement packet [] Provided Bible/devotional materials [] Provided toy/stuffed animal, coloring book to patient or family member [] Provided Communion [] Anointing/B[place]hear [] Salvation [x] Completed spiritual assessment [] Other: Impact on Illness or Injury [] Angry [] Fearful [] Anxious [] Often cries [] Exhaustion [] Unable to work [] Unable to attend hoahaoism [] Unable to walk/stand [] Unable to read [] Unable to drive [] Unable to eat/drink [] Unable to sleep [] Unable to be with family [] Patient intubated [] Other: Summary Time spent with patient 10 MIN
--- NOTE | 2021-03-10 12:12 | ANES.PREANE2 ---
Pre-Anesthetic Assessment Pre-Anesthetic Assessment: Height/Weight: Height 1.6 m Weight 82.554 kg Temp Pulse Resp BP Pulse Ox 97.8 F 68 18 103/52 99 03/10/21 12:03 03/10/21 12:03 03/10/21 12:03 03/10/21 12:03 03/10/21 12:03 Preop Diagnosis: Acute appendicitis Proposed Procedure: Operation Date: 03/10/21 11:45 Proposed Procedures p Laparoscopic Appendectomy(Not Applicable) - Lew Treadwell MD Was Beta Robinson taken within 24 hours: N/A Was Clonidine taken within 24 hours: N/A Social: Social History: No alcohol and No tobacco Exam: Pre-Anes Outpt Exam: alert, oriented x 3, clear to auscultation bilaterally and regular rate & rhythm Airway: Submandibular: WNL Cervical ROM: WNL Dentition: Full CV/HEM: Comments: Von Willebrands Metabolic: Metabolic: Morbid obesity Anesthetic Plan: ASA status: 2 Anesthesia: General Other: Delayed awakening, plan DDAVP Risk of > 500 ml blood loss (7ml/kg in children): No Meds/Allergies Current Medications: Current Medications Generic Name Dose Route Start Last Admin Trade Name Freq PRN Reason Stop Dose Admin Potassium Chloride /Dextrose/Sod Cl 20 meq in 1,000 m ls @ 150 mls/hr 03/09/21 19:25 03/10/21 08:49 D5-Ns 0.45% + Enoc l 20 Meq IV 150 mls/hr .Q6H40M JEAN Administration Ciprofloxacin/Dext laura 400 mg in 200 mls @ 200 mls/hr 03/10/21 08:00 03/10/21 10:15 Cipro IV Infused Q12H JEAN Infusion Protocol Metronidazole 500 mg in 100 mls @ 100 mls/hr 03/10/21 02:00 03/10/21 11:44 Flagyl Iv IV Infused Q8H JEAN Infusion Protocol Ketorolac Trometha mine 15 mg 03/10/21 00:42 03/10/21 02:45 Ketorolac 30 Mg/ Ml Inj IVP 03/13/21 00:41 15 mg Q8H PRN Administration MODERATE PAIN Ondansetron HCl 4 mg 03/09/21 19:25 03/10/21 02:45 Ondansetron 2 Mg /Ml Sdv 2 Ml IVP 4 mg Q6H PRN Administration NAUSEA AND VOMITI NG PFSH Anesthesia PFSH: Medical History Endometriosis Migraine Nephrolithiasis Von Willebrands disease Surgical History H/O bilateral oophorectomy For endometriosis H/O: hysterectomy 2013, for endometriosis Female Reproductive History: Date of last menstrual period: 05/22/13 Data Anesthesia CBC & Chem 7: 03/10/21 02:34 03/10/21 02:34 Other Labs: Laboratory Results - last 48 hr 03/09/21 03/09/21 03/09/21 13:47 13:47 15:38 WBC 4.2 RBC 4.69 Hgb 13.2 Hct 39.8 MCV 84.9 MCH 28.1 MCHC 33.2 RDW 13.5 Plt Count 231 MPV 9.1 Neut % (Auto) 59.0 Lymph % (Auto) 30.0 [place] % (Auto) 7.9 Eos % (Auto) 2.1 Baso % (Auto) 0.5 Neut # (Auto) 2.48 Lymph # (Auto) 1.3 [place] # (Auto) 0.3 Eos # (Auto) 0.1 Baso # (Auto) 0.0 Nucleated RBC % (auto) 0 Nucleated RBCs # 0.0 PT INR APTT Sodium Potassium Chloride Carbon Dioxide Anion Gap BUN Creatinine GFR Calculation Glucose Calculated Osmolality Calcium Total Bilirubin AST ALT Alkaline Phosphatase Troponin T Gen 5 ng/L Total Protein Albumin Globulin Lipase Urine Color Dark yellow Urine Appearance Clear Urine pH 5 Ur Specific [place] 1.020 Urine Protein Neg Urine Glucose (UA) Norm Urine Ketones Negative Urine Blood Neg Urine Nitrate Negative Urine Bilirubin 1+ H Urine Urobilinogen 1 H Ur Leukocyte Esterase Negative Urine HCG, Qual Negative 03/09/21 03/09/21 03/09/21 15:38 15:38 15:38 WBC RBC Hgb Hct MCV MCH MCHC RDW Plt Count MPV Neut % (Auto) Lymph % (Auto) [place] % (Auto) Eos % (Auto) Baso % (Auto) Neut # (Auto) Lymph # (Auto) [place] # (Auto) Eos # (Auto) Baso # (Auto) Nucleated RBC % (auto) Nucleated RBCs # PT 14.00 INR 1.05 APTT 38.6 H Sodium 139 Potassium 3.6 Chloride 101 Carbon Dioxide 27 Anion Gap 14.6 BUN 6 Creatinine 0.6 GFR Calculation 116.6 Glucose 82 Calculated Osmolality 285 Calcium 9.5 Total Bilirubin 1.0 AST 15 ALT 10 Alkaline Phosphatase 99 Troponin T Gen 5 ng/L 6 Total Protein 7.5 Albumin 4.3 Globulin 3.2 Lipase 19 Urine Color Urine Appearance Urine pH Ur Specific [place] Urine Protein Urine Glucose (UA) Urine Ketones Urine Blood Urine Nitrate Urine Bilirubin Urine Urobilinogen Ur Leukocyte Esterase Urine HCG, Qual 03/10/21 03/10/21 02:34 02:34 WBC 4.9 RBC 4.35 Hgb 12.0 Hct 38.1 MCV 87.6 MCH 27.6 L MCHC 31.5 D RDW 13.5 Plt Count 203 MPV 9.2 Neut % (Auto) 64.1 Lymph % (Auto) 24.2 [place] % (Auto) 8.6 Eos % (Auto) 2.5 Baso % (Auto) 0.4 Neut # (Auto) 3.13 Lymph # (Auto) 1.2 [place] # (Auto) 0.4 Eos # (Auto) 0.1 Baso # (Auto) 0.0 Nucleated RBC % (auto) 0 Nucleated RBCs # 0.0 PT INR APTT Sodium 138 Potassium 4.2 Chloride 106 Carbon Dioxide 24 Anion Gap 12.2 BUN 5 L Creatinine 0.5 GFR Calculation 143.9 H Glucose 107 Calculated Osmolality 284 L Calcium 8.9 Total Bilirubin 0.9 AST 14 ALT 9 Alkaline Phosphatase 90 Troponin T Gen 5 ng/L Total Protein 6.8 Albumin 3.9 Globulin 2.9 Lipase Urine Color Urine Appearance Urine pH Ur Specific [place] Urine Protein Urine Glucose (UA) Urine Ketones Urine Blood Urine Nitrate Urine Bilirubin Urine Urobilinogen Ur Leukocyte Esterase Urine HCG, Qual Cardiac Studies: No Data to Display
[2021-03-10] MEDS: acetaminophen 1,000 MG/100 ML PIGGYBACK 400 MG IV (12:23)
[2021-03-10] MEDS: sodium chloride 0.9% 1,000 ML 30 ML IV (12:30)
[2021-03-10] MEDS: lidocaine 2% INJ 20 mL INJECTION (13:39)
--- NOTE | 2021-03-10 13:58 | P.OP_ITS ---
Operative Report Date of procedure: March 10, 2021 Pre-op Diagnosis: Acute appendicitis Post-op diagnosis: same Post-op Diagnosis: Acute retrocecal appendicitis Post-op Findings: Retrocecal acute appendicitis Procedure Done: Laparoscopic appendectomy Specimens removed/disposition: Appendix Surgeon: Lew Treadwell General Internist: Surgical logan Solorzano Circulating nurse Erin Anesthesia: General (LILYA CURING OVEN ATTENDANT Em) Estimated blood loss (mL): 10 IV fluids (mL): 900 Condition: stable Disposition: floor Brief History: Acute appendicitis Procedure: Patient after being identified in the holding area and asked to void urine, and informed consent per chart ,patient was then taken back to the OR placed in supine position got intubated by anesthesia left arm was tucked tucked ,Timeout was done verifying the patient's name/date of /planned procedure and destination after the procedure, all were in agreement., preoperative antibiotics administered per protocol. prep and drape of the abdomen was done under the usual sterile technique. Started by transverse skin incision supraumbilical coinciding with the previous periumbilical scar. Using a David trocar technique safe entry to the abdominal cavity was achieved verified by using 10 mm zero degree laparoscopy, switched to a 30? scope under direct visualization a suprapubic 5 mm trocar was inserted followed by another 5 mm trocar inserted in the left lower quadrant, I was able to position the patient in an T Barboza and left side down, dissection of the retrocecal acutely inflamed appendix . attention was deviated to the healthy base of the appendix where I had to switch the camera to 5 mm 30? scope got introduced through the left lower quadrant and through the David trocar under direct visualization a GI stapler 45 mm blue load was applied at the healthy part of the base of the appendix, and an Endoloop PDS was applied onto the mesoappendix for control , the appendix was then retrieved in an Endo Catch bag, final survey was done of the abdomen and pelvis , irrigation with warm saline, and suction was obtained. Multiple 5 mm clips were applied onto the mesoappendix as well as the appendectomy staple line to secure hemostasis Final look laparoscopy was done showing no other abnormalities or injuries there was some oozing at the supraumbilical fascial insertion site that was cauterized., all trocars were taken out under direct visualization after the supraumblical trocar site was closed by #1 PDS sutures under direct vision using fascial closure device ,followed by skin closure using 3-0 Vicryl followed by 4- 0 Monocryl of all trocar site incisions. infiltration of local lidocaine 2% was done to all incision sites.Dry dressing was applied. Count was completed at the end of the procedure for [place] , sponges and instruments Patient tolerated the procedure well and was transferred to the recovery area after extubation. I was present for the whole entire procedure
[2021-03-10] MEDS: fentaNYL 50 mcg/mL INJ 2mL IVP (14:20)
[2021-03-10] MEDS: HYDROmorphone 1 mg/mL INJ 1 mL 0.5 MG IVP ×2 (14:36→16:48)
[2021-03-10] MEDS: midazolam 1 mg/mL INJ 2 mL 0.5 MG IVP (14:44)
--- NOTE | 2021-03-10 15:40 | ANE.PACU2 ---
Inpatient post-anesthesia follow up: Airway intact: Yes Vital signs: Temperature 97.7 F Pulse Rate [Monito r] 70 Pulse Rate 48 Respiratory Rate 13 Blood Pressure [Le ft Arm] 117/81 Blood Pressure 116/60 Pulse Oximetry 100 Oxygen Delivery Me thod Simple Mask Oxygen Flow Rate 8 Fraction of Inspir ed Oxygen Hydration adequate: Yes Nausea and vomiting: No Pain level: 2 Mental status: Altered Additional Comments: Post op delirium
[2021-03-10] MEDS: metroNIDAZOLE IV 500 MG/100 ML PREMIX 200 MG IV (16:15)
[2021-03-10] MEDS: HYDROcodone-acetaminophen 5-325 mg Tablet 1 TAB PO (16:15)
--- NOTE | 2021-03-10 16:19 | P.PN_ITS ---
Subjective Subjective: Interval history: Patient seen multiple times today. Seen postoperatively. Estimated blood loss of 10 cc. Tolerated the procedure well. Patient today morning requesting medication for anxiety. Vitals/I&O/Wt Last Vital Signs Temp 97.7 F 03/10/21 15:30 Pulse 64 03/10/21 15:30 Resp 17 03/10/21 15:30 BP 102/46 03/10/21 15:30 Pulse Ox 96 03/10/21 15:30 03/10/21 03/10/21 03/10/21 06:59 14:59 22:59 Intake Total 1400 / 2700 1116.167 / 3721.757 7757 / 2116.167 Output Total Balance 1400 / 2700 1106.167 / 5061.006 6620 / 2106.167 Weight last 48 hrs Weight 82.554 kg Weight 79.379 kg Physical Exam Narrative: EXAM NARRATIVE: EXAM NARRATIVE: General: No acute distress, AO x3, HEENT: PERRLA, pupils bilaterally equal and reactive Chest: clear to auscultation B/L CVS: S1-S2 regular, no murmurs, no tachycardia, no gallops, no rubs Abdomen: Soft, tender to palpation right mid abdomen, no organomegaly, bowel sounds present,no rebound tenderness or guarding Neuro: No focal deficits, no facial deformity, AO x3, power 5/5 in all limbs Data : 03/10/21 02:34 03/10/21 02:34 A&P Assessment and plan (1) Acute appendicitis: As per primary team. Postoperative day 0. Physical therapy, anticoagulation, antibiotics as per primary team. For now with continue with ciprofloxacin and Flagyl. Status: Acute (2) Von Willebrands disease: no current bleeding Has undergone prior hysterectomy, oophorectomy without any bleeding complications. She did receive DDAVP 30 minutes prior to her prior surgeries. She required transfusion once during the delivery of her twin children 9 years ago. Patient given DDAVP 30 minutes prior to surgery. Estimated blood loss only 10 cc. Check CBC in a.m. Will monitor hemoglobin and platelets. 2 units of PRBC on hold. VWF concentrate vs cryoprecipitate on standby for OR in case of major bleeding events. Status: Acute Additional A&P Information H/o migraine: no current headache H/o Kidney stones: non obstructive currently Cystitis noted on CT abdomen: no clinical correlate currently, denies dysuria. UA with negative Nitare or leuk esterase. Full code. Diet as per primary team. Famotidine for PUD prophylaxis. Next anticoagulation as per primary team. Thank you for getting us involved in care of Ms. Anton. We will continue to follow. Call with any questions. Attestations Medical Necessity Statement*: Per primary team. Time Spent in Patient Care: Greater than 35 minutes (>than 50% of time spent in counselling and/or direct pt care on unit) . Coding Level of Care Code Acute Global Account Director for [facility] Diagnoses Acute appendicitis K35.80 Von Willebrands disease D68.0
--- NOTE | 2021-03-10 16:24 | PC.NURSE ---
Patient back to room after surgery. Vital signs WNL for patient. Patient yelling about all the blood . Calming and touch therapy performed at this time. Patient orientated back to real time.
[2021-03-10 18:36] LABS: Iron 45 ug/dL (37-145); Percent Saturation 18.2 % (20-50); Thyroid Stimulating Hormone 3.58 uIU/mL (0.27-4.20); Total Iron Binding Capacity 247 mcg/dl; Unsaturated Iron Binding 202 ug/dL (112-347)
[2021-03-11] VITALS: BP 117/77; PULSE 62; RESP 16; TEMP 36.7; O2SAT 99
--- NOTE | 2021-03-11 00:22 | PC.NURSE ---
Shift Summary Assumed care and received report at 1900, on first rounds patient was sitting in bed and notified nurse she had used the bedside commode. Nurse emptied commode 500 mls dark yellow urine. Patient discussed with nurse that she wanted her PO pain medication changed because the Hydrocodone made her nauseated. Nurse contacted Dr. Lam, he D/C the Hydrocodone and ordered Tramadol 50 mg PO Q6H. Patient requested the nurse also get orders for colace, pt stated she takes daily for chronic constipation and has severe hemorrhoids and gets anal fissures easily and is concerned of bleeding due to her Von Willebrand clotting disorder. Nurse obtained the colace orders from Dr. Lam. Patient then requested something to eat. Nurse informed pt her diet order was clear liquid only per doctor orders. Pt was upset and stated she was starving and told nurse, well you better bring me a lot then. PROTOTYPE MODEL MAKERLorrie Keith took several options for pt to choose from within her clear liquid options. Nurse responded to call light and pt was concerned she had been given too many fluids. Nurse reminded patient she had requested a large amount because she was hungry. Patient stated she was on a fluid restriction and that Nursing staff should have been aware of that since Pt had been given DDAVP earlier this day prior to surgery. Nurse informed pt that there was no fluid restriction ordered by the Hospitalist or the Surgeon. The PT became upset and stated that she should indeed be placed on a fluid restriction or her sodium may deplete and she would have a seizure. Pt stated this has happened to her before at another hospital. Nurse informed pt her current sodium level was WNL. PT called the previous hospital she had been admitted at and then reported to this nurse that she was having her records faxed to us and that the previous hospital had her on a 1800 ml fluid restriction and she should continue this restriction amount. This Nurse stated to pt that if she wished to limit her own fluids that is her right to do so, Nurse wrote the fluids on the patient's care board to help her keep track of how much she was drinking. Pt then stated the count should also include IV fluids. Nurse informed pt that the fluids she was receiving was putting sodium and potassium back into her body as well as important antibiotics and that limiting those would not be in her best interest. Pt told the nurse, you are not taking this seriously and you will feel very bad when I seize, Pt requested to speak to charge nurse and told nurse to add up all the IV fluids she had been given during surgery and since being on the floor. Nurse added up the fluids as pt requested and returned to room with charge nurse Blanquita. Blanquita educated pt on the fluids she was receiving and informed her of her right to refuse medication. Pt stated we were not taking her concerns seriously and requested another patient care nurse and to speak with night time Hospitalist. Night time Hospitalist notified by telephone of pt's wishes. Report given to new patient care nurse CUATE Chu.
[2021-03-11 00:33] LABS: Basophils % 0.1 %; Hematocrit 37.6 % (37.0-47.0); Hemoglobin 12.2 g/dL (11.5-15.3); Lymphocytes # 0.4 10^3/uL (0.8-4.8); Lymphocytes % 3.6 %; Mean Corpuscular HGB Conc 32.4 g/dL (30.0-36.0); Mean Corpuscular Volume 86.4 fl (81-99); Mean Platelet Volume 9.5 fL (7.4-10.4); Monocytes # 0.3 10^3/uL (0.2-0.9); Monocytes % 2.4 %; Neutrophils # 10.81 10^3/uL (1.8-7.7); Neutrophils % 93.6 %; Nucleated Red Blood Cells % 0 %; Platelet Count 239 10^3/cmm (130-400); Red Blood Count 4.35 10^6/uL (4.1-5.3); Red Cell Distribution Width 13.1 % (12.1-15.1); White Blood Count 11.6 10^3/uL (4.0-10.0)
[2021-03-11 00:43] LABS: Alanine Aminotransferase 13 U/L (0-33); Albumin Level 4.3 g/dL (3.5-5.2); Alkaline Phosphatase 91 IU/L (35-105); Anion Gap 16.9 (5-19); Aspartate Amino Transferase 20 U/L (0-32); Blood Urea Nitrogen 4 mg/dL (6-20); Calcium 9.4 mg/dL (8.5-10.5); Carbon Dioxide 20 mmol/L (22-29); Chloride 96 mmol/L (98-107); Chol HDL Ratio 4.19 mg/dL (0.0-4.40); Cholesterol 176 mg/dL (0-200); Globulin 3.6 g/dL (1.3-4.6); Glomerular Filtration Rate 143.9 mL/min (90-130); Glucose 136 mg/dL (65-115); HDL Cholesterol 42 mg/dL (60-100); LDL Cholesterol Calculated 122 mg/dL (50-129); Osmolality Calculated 267 mOsm/kg (285-295); Potassium 3.9 mmol/L (3.5-5.1); Sodium 129 mmol/L (136-145); Total Bilirubin 1.1 mg/dL (0.15-1.2); Total Protein 7.9 g/dL (6.6-8.7); Triglycerides 59 mg/dL (0-150); VLDL Cholestrol Calculation 12 mg/dL (0-30)
[2021-03-11 01:11] LABS: Estmated Average Glucose 94; Hemoglobin A1C 4.9 % (4.0-6.0)
[2021-03-11] MEDS: metroNIDAZOLE IV 500 MG/100 ML PREMIX 100 MG IV (02:33)
[2021-03-11] MEDS: ketorolac 30 mg/mL INJ 15 MG IVP (02:48)
[2021-03-11] MEDS: ondansetron 2 mg/ML SDV 2 mL 4 MG IVP (03:24)
[2021-03-11 04:00] VITALS: BP 116/80; PULSE 65; RESP 16; TEMP 36.7; O2SAT 99
[2021-03-11 04:23] LABS: Sodium 128 mmol/L (136-145)
--- NOTE | 2021-03-11 06:17 | P.PN_ITS ---
Subjective Subjective: Interval history: Patient overall feels better. There was some issues with p.o. intake with regard to hyponatremia. Fluids were adjusted per hospitalist service and nephrology was consulted due to the incidental hyponatremia and in correlation with the DDAVP, otherwise from surgical standpoint of view patient continued to have adequate urine output and pain under control. Medications: Reviewed: Yes Vitals/I&O/Wt Last Vital Signs Temp 98.0 F 03/11/21 04:00 Pulse 65 03/11/21 04:00 Resp 16 03/11/21 04:00 BP 116/80 03/11/21 04:00 Pulse Ox 99 03/11/21 04:00 03/10/21 03/10/21 03/11/21 14:59 22:59 06:59 Intake Total 1116.167 / 8688.908 0867 / 2666.167 Output Total 800 / 810 400 / 1210 Balance 1106.167 / 1106.167 750 / 1856.167 -400 / 1456.167 Weight last 48 hrs Weight 182 lb Weight 175 lb Physical Exam Narrative: EXAM NARRATIVE: Patient is conscious alert oriented X3 BMI 32.2 Head and neck examination PERRLA no masses no cervical lymphadenopathy no jaundice Cardiac examination audible S1-S2 no murmurs no gallops no arrhythmias Chest is clear bilateral,abscence of Rhonchi or wheezes,no surgical emphysema Abdomen nontender except slightly at the incision sites nondistended soft no organomegaly guarding or rigidity/no signs of peritonitis Extremities no cyanosis no clubbing no edema Data : 03/10/21 23:10 03/11/21 08:07 A&P Assessment and plan (1) Acute appendicitis: Assessment 31 years old female patient undergone laparoscopic appendectomy 03/10/2021. Patient well-known with von Willebrand's disease and she received DDAVP prior to surgery by 30 minutes. Plan From surgical standpoint of view patient can be discharged home today and will advance to full liquid diet We will continue coordinating with hospitalist and nephrology service prior to discharge home. Encourage ambulation I do not believe at this point patient will require antibiotics upon discharge. Assurance and education All questions have been answered and all concerns have been addressed to patient's satisfaction. Status: Resolved Attestations Medical Necessity Statement*: Observation status for perioperative care, patient requiring hospitalist and nephrology input Time Spent in Patient Care: - 35 minutes (>than 50% of time spent in counselling and/or direct pt care on unit) . Coding Level of Care Code Acute Mobile Electronics Installer for Anh Mcmahon Diagnoses Acute appendicitis K35.80
[2021-03-11 08:00] VITALS: BP 115/74; PULSE 64; RESP 16; TEMP 36.6; O2SAT 99
[2021-03-11] MEDS: ciprofloxacin 400 MG/200 ML PREMIX 200 MG IV (08:54)
[2021-03-11 08:55] LABS: Sodium 127 mmol/L (136-145)
[2021-03-11] MEDS: sodium chloride 1 gm Tablet PO (10:23)
[2021-03-11] MEDS: TRAMadol 50 mg Tablet PO ×2 (10:26→15:29)
[2021-03-11 11:08] LABS: Potassium, Radom Urine 78 mmol/L
--- NOTE | 2021-03-11 11:29 | P.SS_ITS ---
Short Stay Summary Providers Date of Admit/Discharge: 03/11/21 Attending Provider: Lew Treadwell MD Chief Complaint: RUQ PAIN,MIGRAINE,PULSE ^125,R SIDE CP/NECK PAIN HPI History of Present Illness Sloane Meyers is a 31 year old female presented to the emergency department with abdominal pain and was found to have acute appendicitis. Patient have history of von Willebrand's disease. Patient was taken to surgery in the form of laparoscopic appendectomy and she did well with that regard. Review of Systems General: Reports: 10 or more systems reviewed and unremarkable except in HPI and below Home Meds/Allergies Home Medications and Allergies Home Medications Medication Instructions Recorded Confirmed Type Femring 1 vag ring VAGINAL .EVERY 90 DAYS 03/09/21 03/09/21 History Allergies Allergy/AdvReac Type Severity Reaction Status Date / Time latex Allergy Unknown Verified 03/10/21 10:48 Penicillins Allergy Unknown Verified 03/09/21 16:17 PFSH Acute PFSH: Medical History Endometriosis Migraine Nephrolithiasis Von Willebrands disease Surgical History H/O bilateral oophorectomy For endometriosis H/O: hysterectomy 2013, for endometriosis Female Reproductive History: Date of last menstrual period: 05/22/13 Vitals/I&O/Wt Last Vital Signs Temp 97.9 F 03/11/21 08:00 Pulse 64 03/11/21 08:00 Resp 16 03/11/21 08:00 BP 115/74 03/11/21 08:00 Pulse Ox 99 03/11/21 08:00 03/10/21 03/11/21 03/11/21 22:59 06:59 14:59 Intake Total 1550 / 2666.167 500 / 500 Output Total 800 / 810 400 / 1210 200 / 200 Balance 750 / 1856.167 -400 / 1456.167 300 / 300 Weight last 48 hrs Weight 182 lb Physical Exam Narrative: EXAM NARRATIVE: Patient is conscious alert oriented X3 BMI 32.2 Head and neck examination PERRLA no masses no cervical lymphadenopathy no jaundice Cardiac examination audible S1-S2 no murmurs no gallops no arrhythmias Chest is clear bilateral,abscence of Rhonchi or wheezes,no surgical emphysema Abdomen nontender except slightly at the incision sites nondistended soft no organomegaly guarding or rigidity/no signs of peritonitis Extremities no cyanosis no clubbing no edema Hospital Course Admission Diagnoses Acute appendicitis Hospital Course This is a pleasant 31 years old female patient undergone uneventful laparoscopic appendectomy. Hospitalist was consulted for premedication as the patient had history of von Willebrand's disease that required DDAVP 30 minutes prior to surgery. Patient did not have any bleeding issues during surgery and she main tained to be doing well postoperatively had her pain under control. Tolerating p.o. intake, noticed to have hyponatremia that is being managed by hospitalist and nephrology service. There was adequate urine output. Discharge Summary This is a pleasant 31 years old female patient with history of von Willebrand's disease that required appropriate premedication prior to surgery. Undergone uneventful laparoscopic appendectomy was found to have retrocecal acute appendicitis without perforation or abscess formation. Also has noticed intraoperatively to have fatty liver component. Patient met the appropriate and safe criteria for discharge home per surgical service. We will continue coordinating care with nephrology and hospitalist service prior to discharge home with specific instructions about management of the incidental finding of the hyponatremia. Surgical standpoint of view patient does not require antimicrobial therapy upon discharge and will have the patient follow-up with me in 10 days after discharge. Also will establish primary care provider service. SSS Data Data Completed and Pending: Completed Studies During Hospitalization Category Date Time Status CT abdomen pelvis w con* 05171 Stat Cat Scan 03/09/21 16:06 Completed XR chest 2V* 7104 6 Urgent Exams 03/09/21 11:05 Completed Pending at discharge Category Date Time Status ES surgery / GI i mages Routine Exams 03/10/21 12:06 Taken Complete Blood Co unt w/Auto Routine Lab 03/11/21 13:00 Ordered Leukocyte Reduced RBC Routine Lab 03/10/21 11:51 Results Sodium Routine Lab 03/11/21 13:00 Ordered Type and Screen S tat Lab 03/10/21 11:51 Results Urine Random Lyte s Routine Lab 03/11/21 10:00 Results Pathology: Surgic al [PTH] Routine Pth 03/10/21 14:12 Received Diagnoses at Discharge Discharge Diagnosis (1) Acute appendicitis: Status: Resolved Discharge Plan Discharge Patient Disposition: Home Condition: Stable Prescriptions: New tramadol 50 mg tablet 50 mg PO Q6H PRN (Reason: pain) Qty: 28 RF: 0 sodium chloride 1 gram tablet 1,000 mg PO DAILY 3 Days Qty: 3 RF: 0 Continued Femring 0.05 mg/24 hr Ring 1 vag ring VAGINAL .EVERY 90 DAYS RF: 0 Discharge Orders: Discharge Order (Routine); Ordered 03/11/21 Ordered By: Lew Treadwell Referrals: Lew Treadwell MD [Physician] - 03/25/21 8:15 am (Return to surgery office in 10 days) Vitor Cadet MD [Hospitalist] - 1 month (Referral for Von Willebrand disease sent to Dr. Cadet's office on 03/11/2021 at 1406. Their office is to call after reviewing records to setup appointment per Anahi on behalf of Dr. Cadet.) Erin Fraser NP [Nurse Practitioner] - 03/15/21 3:00 pm Discharge Diet: Advance as tolerated Discharge Activity: Limit activity as instructed Patient Instructions: Tramadol (By mouth), Hyponatremia (GEN), Laparoscopic Appendectomy (GEN), Opioid Safety Activity Restrictions/Additional Instructions: 1. Patient can shower after 48 hours from surgery 2. Remove Dermabond 7 to 10 days after surgery, if there is a secondary dressing can take down after 48 hours. 3. Up and walking as tolerated 4. Do not lift more than 5 pounds first 2 weeks after surgery and not more than 25 pounds 6 to 8 weeks after surgery. 5. Do not operate heavy machinery or drive while using pain medications. 6.Contact the office or return to the ER for worsening nausea vomiting fevers or chills, or noticing any redness around incision sites or discharge. For hyponatremia patient showed have fluid restriction up to 1800 cc to 2 L/day for next 2 days along with consumption of at least 500 cc of Gatorade a day. Repeat BMP and CBC with primary care provider on March 15. If patient has extreme dizziness or weakness to come to the ER or urgent care for repeat BMP. Patient should follow-up with dining room busser as an outpatient for follow-up of von Willebrand disease. Attestations Medical Necessity Statement*: Observation status for perioperative care and management of hyponatremia. Time Spent in Patient Care*: greater than 30 min Specific Discharge Activities: Specific discharge activities: educating patient and educating and/or supporting family/caregiver Status at Discharge: Cognitive status at discharge: cognitively intact , Behavioral status at discharge: cooperative , Functional status at discharge: independent ambulation Overall status at discharge: patient is progressing back to baseline Quality Metrics Clinical Quality Measures: During this hospital stay, did patient experience: None Coding Level of Care Code Acute Photographic Machine Operator for Chg Fwd Diagnoses Acute appendicitis K35.80
[2021-03-11 11:46] VITALS: BP 110/73; PULSE 52; RESP 17; TEMP 36.6; O2SAT 98
--- NOTE | 2021-03-11 12:09 | PM.PN ---
Subjective Subjective: Interval history: No acute events overnight. Patient tolerated the surgery well. Overnight patient was concerned that her sodium levels were running low because she got extra fluid. Today morning on examination she states she is feeling fine. Having some nausea with meals but no vomiting. Able to ambulate in the [place] without any difficulty in breathing or dizziness. We discussed in detail that with DDAVP sodium levels can go down for first 24 to 48 hours for now sodium levels are on the lower side but are stable. Patient verbalized understanding and states he has been dealing with this for since she was 4-year-old. She verbalized that she knows she needs to have fluid restriction for next few days. We discussed that going forward she should see her primary care physician on Monday for a repeat BMP. She should restrict her fluid to 1800 cc to 2 L/day for next 48 hours along with at least 500 cc of Gatorade. We also discussed that she should come to the hospital if she is feeling fairly weak. We discussed that dizziness and nausea should go away after the kind of surgery she had within next few days. Medications: Reviewed: Yes Vitals/I&O/Wt Last Vital Signs Temp 97.8 F 03/11/21 11:46 Pulse 52 L 03/11/21 11:46 Resp 17 03/11/21 11:46 BP 110/73 03/11/21 11:46 Pulse Ox 98 03/11/21 11:46 03/10/21 03/11/21 03/11/21 22:59 06:59 14:59 Intake Total 1550 / 2666.167 500 / 500 Output Total 800 / 810 400 / 1210 200 / 200 Balance 750 / 1856.167 -400 / 1456.167 300 / 300 Weight last 48 hrs Weight 82.554 kg Physical Exam Narrative: EXAM NARRATIVE: EXAM NARRATIVE: General: No acute distress, AO x3, HEENT: PERRLA, pupils bilaterally equal and reactive Chest: clear to auscultation B/L CVS: S1-S2 regular, no murmurs, no tachycardia, no gallops, no rubs Abdomen: Soft, tender to palpation right mid abdomen, no organomegaly, bowel sounds present,no rebound tenderness or guarding Neuro: No focal deficits, no facial deformity, AO x3, power 5/5 in all limbs Data : 03/10/21 23:10 03/11/21 08:07 A&P Assessment and plan (1) Acute appendicitis: As per primary team. Postoperative day 1. Physical therapy, anticoagulation, antibiotics as per primary team. For now with continue with ciprofloxacin and Flagyl. Status: Resolved (2) Von Willebrands disease: no current bleeding. Hemoglobin stable. Has undergone prior hysterectomy, oophorectomy without any bleeding complications. She did receive DDAVP 30 minutes prior to her prior surgeries. She required transfusion once during the delivery of her twin children 9 years ago. Patient given DDAVP 30 minutes prior to surgery. Estimated blood loss only 10 cc. Status: Acute (3) Hyponatremia: Most likely secondary to DDAVP prior to surgery which was needed to be given secondary to history of von Willebrand disease along with D5 half NS postoperatively. No acute symptoms. Continue to monitor. Salt tablet 1 g twice daily. Status: Acute Additional A&P Information H/o migraine: no current headache H/o Kidney stones: non obstructive currently Cystitis noted on CT abdomen: no clinical correlate currently, denies dysuria. UA with negative Nitare or leuk esterase. Full code. Diet as per primary team. Famotidine for PUD prophylaxis. Next anticoagulation as per primary team. Discussed in detail with patient regarding hyponatremia, von Willebrand disease. Patient states she has been dealing with DDAVP, von Willebrand disease and hyponatremia associated with that for a long time and has had to take care of it around multiple surgeries in the past. She denies having any acute symptoms of headache, dizziness. He is ambulatory, able to tolerate diet. We discussed that she can go home today with advice of fluid restriction up to 1800 cc to 2 L/day for next 2 days along with consumption of at least 500 cc of Gatorade a day. She is to follow-up with a primary care provider on Monday for repeat BMP and CBC. Have discussed with case management for arrangement of PCP as patient recently moved to [place]. We also discussed in detail that she should follow-up with lawn service manager as an outpatient for further management of von Willebrand disease going forward. Patient verbalized understanding and would like to go home today. Recommendations discussed in detail with primary team. Attestations Medical Necessity Statement*: As per primary team. Time Spent in Patient Care: Greater than 35 minutes (>than 50% of time spent in counselling and/or direct pt care on unit). Coding Level of Care Code Acute Sewage Plant Operator for Chg Fwd Diagnoses Acute appendicitis K35.80 Von Willebrands disease D68.0 Hyponatremia E87.1
[2021-03-11 12:13] LABS: Basophils % 0.2 %; Eosinophils % 0.2 %; Hematocrit 32.2 % (37.0-47.0); Hemoglobin 10.8 g/dL (11.5-15.3); Lymphocytes # 1.2 10^3/uL (0.8-4.8); Lymphocytes % 12.8 %; Mean Corpuscular HGB Conc 33.5 g/dL (30.0-36.0); Mean Corpuscular Hemoglobin 28.6 pg (28.0-34.0); Mean Corpuscular Volume 85.4 fl (81-99); Mean Platelet Volume 9.8 fL (7.4-10.4); Monocytes # 0.5 10^3/uL (0.2-0.9); Monocytes % 5.9 %; Neutrophils # 7.35 10^3/uL (1.8-7.7); Neutrophils % 80.5 %; Nucleated Red Blood Cells % 0 %; Platelet Count 231 10^3/cmm (130-400); Red Blood Count 3.77 10^6/uL (4.1-5.3); Red Cell Distribution Width 13.1 % (12.1-15.1); White Blood Count 9.1 10^3/uL (4.0-10.0)
[2021-03-11 13:54] LABS: Urine Random Chloride > 275 mmol/L
[2021-03-11 14:20] LABS: Sodium 128 mmol/L (136-145)
--- NOTE | 2021-03-11 14:43 | PM.CONSULT ---
Providers/Reason For Consult Consulting Physician/Specialty*: Nephrology Reason for Consult*: eval for hypoNa Attending Physician: Lew Treadwell MD History of Present Illness History of Present Illness Thank you for consultation, today had the pleasure reviewing this 31-year-old female for evaluation of hyponatremia. In brief, she underwent appendectomy yesterday. Uncomplicated procedure. As preop preparation she received intravenous DDAVP for von Willebrand's deficiency disorder. Postoperatively she received D5 half-normal saline. Sodium drifted down to 127 this morning, and just returned to 128 today. Of note when she has a sodium of 127, she has an excess free water of 3.9 L. She feels okay today, keen to go home, no extremity edema, shortness of breath or other hypervolemic symptoms. No symptoms of disequilibrium. No symptoms of brain edema i.e. no nausea or vomiting, headache, confusion etc. Hemodynamic stable. Meds/Allergies Home Medications and Allergies Home Medications Medication Instructions Recorded Confirmed Last Taken Type Femring 1 vag ring VAGINAL .EVERY 90 DAYS 03/09/21 03/09/21 Unknown History sodium chloride 1,000 mg PO DAILY 3 Days #3 tab 03/11/21 Unknown Rx tramadol 50 mg PO Q6H PRN #28 tab 03/11/21 Unknown Rx Allergies Allergy/AdvReac Type Severity Reaction Status Date / Time latex Allergy Unknown Verified 03/10/21 10:48 Penicillins Allergy Unknown Verified 03/09/21 16:17 Current Medications Current Medications Generic Name Dose Route Start Last Admin Trade Name Freq PRN Reason Stop Dose Admin Hydromorphone HCl 0.5 mg 03/10/21 00:42 03/10/21 16:48 Hydromorphone 1 Mg/Ml Inj 1 Ml IVP 0.5 mg Q6H PRN Administration PAIN Ketorolac Tromethamine 15 mg 03/11/21 02:37 03/11/21 02:48 Ketorolac 30 Mg/Ml Inj IVP 03/13/21 02:36 15 mg Q8H PRN Administration MODERATE PAIN Ondansetron HCl 4 mg 03/09/21 19:25 03/11/21 03:24 Ondansetron 2 Mg/Ml Sdv 2 Ml IVP 4 mg Q6H PRN Administration NAUSEA AND VOMITING Sodium Chloride 1 gm 03/11/21 10:15 03/11/21 10:23 Sodium Chloride 1 Gm Tablet PO 1 gm BID JEAN Administration Tramadol HCl 50 mg 03/10/21 20:33 03/11/21 10:26 Tramadol 50 Mg Tablet PO 50 mg Q6H PRN Administration MODERATE PAIN PFSH Acute PFSH: Medical History Endometriosis Migraine Nephrolithiasis Von Willebrands disease Surgical History H/O bilateral oophorectomy For endometriosis H/O: hysterectomy 2013, for endometriosis Female Reproductive History: Date of last menstrual period: 05/22/13 Vitals/I&O/Wt Last Vital Signs Temp 97.8 F 03/11/21 11:46 Pulse 52 L 03/11/21 11:46 Resp 17 03/11/21 11:46 BP 110/73 03/11/21 11:46 Pulse Ox 98 03/11/21 11:46 03/10/21 03/11/21 03/11/21 22:59 06:59 14:59 Intake Total 1550 / 2666.167 500 / 500 Output Total 800 / 810 400 / 1210 200 / 200 Balance 750 / 1856.167 -400 / 1456.167 300 / 300 Weight last 48 hrs Weight 82.554 kg A&P Additional A&P Information 1. Hyponatremia Secondary to both exogenous DDAVP as well as endogenous ADH release from the stress of surgery causing acute dip in sodium at 127. This has caused the accumulation of 3.9 L of free water in her body. These 2 effects should wane over the next day or so and she should pee out very dilute urine over the next 24-48 hours and this will effectively correct her serum chemistry. No other intervention needs to be performed at this time. She is safe for discharge. She should limit the amount of water she drinks over the next 24-48 hours, take in a robust amount of food i.e. this is the electrolyte that she needs. 2. Status post appendectomy per surgery. Okay for discharge from my perspective Coding Level of Care Code Acute Daylight Driller for Anh Mcmahon
[2021-03-11 15:32] VITALS: BP 110/73; PULSE 52; RESP 17; TEMP 36.6; O2SAT 98
[2021-03-11 16:00] VITALS: BP 115/72; PULSE 65; RESP 17; TEMP 36.5; O2SAT 97
== END 2021-03-11 16:55 | disposition home or self-care (01) | DRG 342 ==
LOC: ER 18:02 → MEDSURG 03-10 06:17 → CSU 03-14 16:55
PROVIDERS: Emergency Medicine; Student in an Organized Health Care Education/Training Program; Admitting Provider Surgery; Emergency Provider Family Medicine; Visit Provider Surgery
PROC: 0DTJ4ZZ Resection of Appendix, Percutaneous Endoscopic Approach (ICD-10-PCS; CPT 44970; principal; 2021-03-10 11:45)
DX: K35.80 Unspecified acute appendicitis (principal); E87.1 Hypo-osmolality and hyponatremia; D68.0 Von Willebrand disease; K76.0 Fatty (change of) liver, not elsewhere classified; N30.90 Cystitis, unspecified without hematuria; N20.0 Calculus of kidney; E66.01 Morbid (severe) obesity due to excess calories; Z68.32 Body mass index [BMI] 32.0-32.9, adult; Z87.442 Personal history of urinary calculi; Z90.710 Acquired absence of both cervix and uterus; Z87.42 Personal history of other diseases of the female genital tract; Z79.899 Other long term (current) drug therapy; Z86.69 Personal history of other diseases of the nervous system and sense organs; Z90.722 Acquired absence of ovaries, bilateral
CPT/HCPCS: 36415; 71046; 74177; 80053; 80061; 81003; 81025; 82436; 83036; 83540; 83550; 83690; 84133; 84295; 84300; 84443; 84484; 85025; 85610; 85730; 86850; 86900; 86920; 88304; 93005; G0378; J0744; J1100; J1170; J1200; J1885; J2250; J2370; J2405; J2597; J2704; J2710; J3010; J3490; J7030; Q9967; S0030

== ENCOUNTER 2021-03-12 22:45 | Emergency (ER) | payer MEDICAID, SELFPAY ==
[2021-03-12 22:56] VITALS: BP 111/71; PULSE 70; RESP 18; TEMP 36.8; O2SAT 99; BMI 31.8
--- NOTE | 2021-03-12 23:18 | ECG_ITS ---
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 Measurements Intervals [place] Rate: 63 P: 54 GA: 145 QRS: 51 QRSD: 88 T: 52 QT: 386 QTc: 397 Interpretive Statements SINUS RHYTHM LOW QRS VOLTAGE IN PRECORDIAL LEADS [QRS DEFLECTION < 1.0 mV IN CHEST LEADS] Compared to ECG 03/09/2021 11:15:02 Low QRS voltage now present T-wave abnormality no longer present Electronically Signed On 03-14-2021 0:25:07 CDT by Don Paris M.D. [id number]
[2021-03-12 23:25] VITALS: BP 116/67; PULSE 74; RESP 16; TEMP 36.6; O2SAT 100
[2021-03-12 23:41] VITALS: BP 116/68; PULSE 76; RESP 16; O2SAT 100
[2021-03-12 23:48] LABS: Basophils % 0.4 %; Eosinophils # 0.1 10^3/uL (0.0-0.8); Eosinophils % 1.2 %; Hematocrit 34.4 % (37.0-47.0); Hemoglobin 12.1 g/dL (11.5-15.3); Lymphocytes # 1.8 10^3/uL (0.8-4.8); Lymphocytes % 34.2 %; Mean Corpuscular HGB Conc 35.2 g/dL (30.0-36.0); Mean Corpuscular Hemoglobin 32.2 pg (28.0-34.0); Mean Corpuscular Volume 91.5 fl (81-99); Mean Platelet Volume 9.5 fL (7.4-10.4); Monocytes # 0.4 10^3/uL (0.2-0.9); Monocytes % 7.7 %; Neutrophils # 2.91 10^3/uL (1.8-7.7); Neutrophils % 55.7 %; Nucleated Red Blood Cells % 0 %; Platelet Count 254 10^3/cmm (130-400); Red Blood Count 3.76 10^6/uL (4.1-5.3); Red Cell Distribution Width 15.6 % (12.1-15.1); White Blood Count 5.2 10^3/uL (4.0-10.0)
[2021-03-12] MEDS: ondansetron 2 mg/ML SDV 2 mL 4 MG IVP (23:51)
[2021-03-12 23:54] VITALS: RESP 16; O2SAT 100
[2021-03-12] MEDS: fentaNYL 50 mcg/mL INJ 2mL 75 MCG IVP (23:54)
[2021-03-13 00:13] LABS: Alanine Aminotransferase 19 U/L (0-33); Albumin Level 4.1 g/dL (3.5-5.2); Alkaline Phosphatase 91 IU/L (35-105); Aspartate Amino Transferase 28 U/L (0-32); Blood Urea Nitrogen 8 mg/dL (6-20); Calcium 9.3 mg/dL (8.5-10.5); Carbon Dioxide 24 mmol/L (22-29); Chloride 104 mmol/L (98-107); Creatinine Clr Calc Pharmacy 137.4712; Globulin 3.4 g/dL (1.3-4.6); Glomerular Filtration Rate 116.6 mL/min (90-130); Glucose 96 mg/dL (65-115); Osmolality Calculated 288 mOsm/kg (285-295); Sodium 140 mmol/L (136-145); Total Bilirubin 0.5 mg/dL (0.15-1.2); Total Protein 7.5 g/dL (6.6-8.7)
--- NOTE | 2021-03-13 00:51 | CTR_ITS ---
PROCEDURE INFORMATION: Exam: CT Head Without Contrast Exam date and time: 03/13/2021 12:51 AM Age: 31 years old Clinical indication: Pain; Headache; Patient HX: ADAMS with dizziness. TECHNIQUE: Imaging protocol: Computed tomography of the head without contrast. Radiation optimization: All CT scans at this facility use at least one of these dose optimization techniques: automated exposure control; mA and/or kV adjustment per patient size (includes targeted exams where dose is matched to clinical indication); or iterative reconstruction. COMPARISON: No relevant prior studies available. RADIATION DOSE METRICS: Total DLP (mGy-cm): 813 FINDINGS: Brain: Normal. No hemorrhage. Unremarkable white matter. No mass effect. Cerebral ventricles: No ventriculomegaly. Paranasal sinuses: Visualized sinuses are unremarkable. No fluid levels. Mastoid air cells: Visualized mastoid air cells are well aerated. Bones/joints: Unremarkable. No acute fracture. Soft tissues: Unremarkable. CT/CT head wo con* [id number] IMPRESSION: No acute intracranial abnormality. Radiation Dose CTDIVOL = (mGy): DLP = 813 (mGy-cm)
--- NOTE | 2021-03-13 01:14 | ED_ITS ---
HPI - Dizziness General: Chief Complaint: Dizziness Stated Complaint: dizzy, not feeling well Time Seen by Provider: 03/12/21 23:15 History of Present Illness: HPI Narrative: 31-year-old female with a history of von Willebrand's disease. She had an appendectomy on 03/10. She was released the evening of 03/11 she received DDAVP appropriately prior to her surgery. She experienced hyponatremia during the hospitalization. She was given salt tab in her usual water restriction on discharge. She presents this evening with a global, pounding headache, vision changes, nausea, dizziness, and mild mental status changes that have worsened since her discharge. She denies any fever. No significant vomiting. She states that her belly pain postoperatively is improving MD elicited complaint: dizziness, lightheadedness and other Pertinent past history: other Onset (ago): hour(s) Timing: gradual onset Severity: moderate Description: sense of movement, lightheadedness and near-syncope Context: recent illness History of similar symptoms: Yes (To some degree with migraine, but not this bad) Exacerbating factors: movement/ambulation Relieving factors: nothing Associated symptoms: Reports palpitations (On and off since before she was sick with appendicitis); Denies chest pain or chills Associated neuro symptoms: Reports confusion and visual changes; Deny difficulty speaking, dysphagia, diplopia, extremity weakness, facial numbness, facial weakness, gait changes or numbness in extremities Review of Systems Const: Denies: fever(s) or chills Card: Reports: palpitations (On and off since before she was sick with appendicitis); Denies: chest pain Resp: Reports: non-productive cough; Denies: dyspnea or productive cough GI: Denies: dysphagia Neuro: Reports: confusion; Denies: numbness in extremities PFS ED PFSH: Medical History Endometriosis Migraine Nephrolithiasis Von Willebrands disease Surgical History H/O bilateral oophorectomy For endometriosis H/O: hysterectomy 2013, for endometriosis Female Reproductive History: Date of last menstrual period: 05/22/13 Physical Exam Const: COMMON NORMALS: no acute distress GENERAL APPEARANCE: cooperative and well developed ORIENTATION/CONSCIOUSNESS: Yes awake, Yes oriented to person, Yes oriented to place and Yes oriented to time HENMT: COMMON NORMALS: normocephalic and atraumatic HEAD & SCALP: normocephalic and atraumatic Chest: COMMONS NORMALS: normal inspection of the chest Resp: COMMON NORMALS: normal respiratory effort, No use of accessory muscles and clear to auscultation bilaterally AUSCULTATION: clear to auscultation bilaterally Cardio: COMMON NORMALS: regular rate, regular rhythm and Peripheral pulses 2+ throughout RATE: regular rate RHYTHM: regular rhythm PERIPHERAL PULSES: Peripheral pulses 2+ throughout GI: COMMON NORMALS: Normal to inspection, nondistended, normoactive bowel sounds present and Soft to palpation PALPATION: Yes Soft to palpation Neuro: SENSORIUM/ORIENTATION: Yes oriented to person, Yes oriented to place and Yes oriented to time Course Vital Signs: Vital signs: Vital Signs Temperature 98 F 03/12/21 23:25 Pulse Rate 67 03/13/21 02:48 Respiratory Rate 20 H 03/13/21 02:48 Blood Pressure 118/61 03/13/21 02:48 Pulse Oximetry 100 03/13/21 02:48 MDM - Dizziness MDM Narrative: Medical decision making narrative: 31-year-old female who had hyponatremia following surgery 127. She presents with some mild mental status changes, and headache tonight she does have a history of migraines, but states they are usually not this bad, and her symptoms are a bit different. Her white blood cell count is 5.2. Her hemoglobin is 12. Her electrolytes are normal including a sodium of 140. 127-140 in a period of 36 hours is a mildly significant jump. We will complete CT scan of the head. Check other electrolytes she will be given a migraine cocktail to see if it improves her headache symptoms. 0232: Spoke with patient. Her headache is significantly improved she has been resting comfortably. She does not feel as lethargic. She is concerned about continued nausea. We will send her home with a prescription for Zofran. As her sodium came up so fast, she was told to discontinue her salt tabs. She has an appointment for repeat BMP on Monday, essentially in a little over 48 hours Lab Data: Labs: Lab Results 03/12/21 03/12/21 03/12/21 22:38 22:38 23:38 WBC 5.2 10^3/uL 10^3/ uL (4.0-10.0) RBC 3.76 10^6/uL L 10 ^6/uL (4.1-5.3) Hgb 12.1 g/dL g/dL (11.5-15.3) Hct 34.4 % L % (37.0-47.0) MCV 91.5 fl fl (81-99) MCH 32.2 pg pg (28.0-34.0) MCHC 35.2 g/dL g/dL (30.0-36.0) RDW 15.6 % H % (12.1-15.1) Plt Count 254 10^3/cmm 10^3 /cmm (130-400) MPV 9.5 fL fL (7.4-10.4) Neut % (Auto) 55.7 % % Lymph % (Auto) 34.2 % % [place] % (Auto) 7.7 % % Eos % (Auto) 1.2 % % Baso % (Auto) 0.4 % % Neut # (Auto) 2.91 10^3/uL 10^3 /uL (1.8-7.7) Lymph # (Auto) 1.8 10^3/uL 10^3/ uL (0.8-4.8) [place] # (Auto) 0.4 10^3/uL 10^3/ uL (0.2-0.9) Eos # (Auto) 0.1 10^3/uL 10^3/ uL (0.0-0.8) Baso # (Auto) 0.0 10^3/uL 10^3/ uL (0.0-0.1) Nucleated RBC % (a uto) 0 % % Nucleated RBCs # 0.0 /100WBC /100W BC Sodium 140 mmol/L mmol/L (136-145) Potassium 4.0 mmol/L mmol/L (3.5-5.1) Chloride 104 mmol/L mmol/L (98-107) Carbon Dioxide 24 mmol/L mmol/L (22-29) Anion Gap 16.0 (5-19) BUN 8 mg/dL mg/dL (6-20) Creatinine 0.6 mg/dL mg/dL (0.5-0.9) GFR Calculation 116.6 mL/min mL/m in (90-130) Glucose 96 mg/dL mg/dL (65-115) Calculated Osmolal ity 288 mOsm/kg mOsm/ kg (285-295) Calcium 9.3 mg/dL mg/dL (8.5-10.5) Phosphorus 2.6 mg/dL mg/dL (2.5-4.5) Magnesium 1.9 mg/dL mg/dL (1.7-2.3) Total Bilirubin 0.5 mg/dL mg/dL (0.15-1.2) AST 28 U/L U/L (0-32) ALT 19 U/L U/L (0-33) Alkaline Phosphata se 91 IU/L IU/L (35-105) Total Protein 7.5 g/dL g/dL (6.6-8.7) Albumin 4.1 g/dL g/dL (3.5-5.2) Globulin 3.4 g/dL g/dL (1.3-4.6) Discharge Plan Discharge Patient Disposition: Home Clinical Impression: Migraine headache Qualifiers: Migraine type: unspecified Status migrainosus presence: without status krunal rainosus Intractability: not intractable Qualified Code(s): G43.909 - Migraine, unspecified, not intractable, without status migrainosus Condition: Stable Prescriptions: New Zofran 4 mg tablet 4 mg PO Q6H PRN (Reason: nausea and vomiting) Qty: 10 RF: 0 No Action Femring 0.05 mg/24 hr Ring 1 vag ring VAGINAL .EVERY 90 DAYS RF: 0 tramadol 50 mg tablet 50 mg PO Q6H PRN (Reason: pain) Qty: 28 RF: 0 sodium chloride 1 gram tablet 1,000 mg PO DAILY 3 Days Qty: 3 RF: 0 Discharge Orders: Discharge ED (Routine); Ordered 03/13/21 Ordered By: Tanmay Rizzo Discharge Diet: Advance as tolerated Discharge Activity: Increase activity as tolerated Patient Instructions: Acute Headache (ED) Activity Restrictions/Additional Instructions: Discontinue salt tabs. Keep your appointment for repeat electrolyte testing on Monday. Take nausea medication as needed for nausea and/or any continued headache symptoms. Return for worsening lethargy, mental status changes, weakness, worsening pain, other concerning symptoms. Coding Level of Care Code ED Marriage Counselor Minister for An[employer] Fwd Exam Detailed
[2021-03-13] MEDS: valproic acid inj 500 MG in sodium chloride 0.9% 50 ML 55 MG IV (01:20)
[2021-03-13] MEDS: ketorolac 30 mg/mL INJ 15 MG IVP ×2 (01:20→02:47)
[2021-03-13] MEDS: metoclopramide 5 mg/mL SDV 2 mL 10 MG IVP (01:20)
[2021-03-13 01:44] LABS: Magnesium 1.9 mg/dL (1.7-2.3); Phosphorus 2.6 mg/dL (2.5-4.5)
[2021-03-13] MEDS: ondansetron 4 MG Tablet 8 MG PO (02:47)
[2021-03-13 02:48] VITALS: BP 118/61; PULSE 67; RESP 20; O2SAT 100
== END 2021-03-13 02:50 | disposition home or self-care (01) ==
PROVIDERS: Emergency Provider Emergency Medicine
DX: G43.909 Migraine, unspecified, not intractable, without status migrainosus (principal)
CPT/HCPCS: 70450; 80053; 83735; 84100; 84443; 85025; 93005; 96365; 96375; 96376; 99284; J1885; J2405; J2765; J3010; Q0162

== ENCOUNTER → 2021-03-15 15:35 | Outpatient (BNVA) | payer MEDICAID, SELFPAY | PROVIDERS: PCP Nurse Practitioner Family; Visit Provider Nurse Practitioner Family | DX: E87.1 Hypo-osmolality and hyponatremia (principal); R79.89 Other specified abnormal findings of blood chemistry; D68.0 Von Willebrand disease | CPT/HCPCS: 80053; 84439; 84443; 84480; 85007; 85027 ==